=== PATIENT | male | born 1980 | race Caucasian/White ===

== ENCOUNTER 2019-02-14 18:11 | Emergency (ER) | payer BC, OTHER ==
[2019-02-14 18:21] VITALS: BP 155/95
--- NOTE | 2019-02-14 18:27 | NUR ---
C COLLAR APPLIED IN TRIAGE, PT WHEELED BACK TO ROOM 6 IN WC. CSPINE PRECAUTIONS INITIATED IN ROOM 6.
--- NOTE | 2019-02-14 19:15 | NUR ---
report received from MAHSA Stubbs.
--- NOTE | 2019-02-14 19:35 | NUR ---
report to break MAHSA Ware.
[2019-02-14] MEDS ORDERED: OXYcodone/APAP 5/325MG TABLET ONE (19:39)
--- NOTE | 2019-02-14 19:44 | NUR ---
BREAK RN: Pt back to room from imaging, pt medicated per MAR.
[2019-02-14] MEDS ORDERED: OXYcodone/APAP 5/325MG TABLET PO ONE (20:00)
--- NOTE | 2019-02-14 20:07 | NUR ---
report received from CARLOTA Mcdonough at bedside to explain results and POC to pt at this time.
--- NOTE | 2019-02-14 20:56 | NUR ---
c collar was previously removed by provider. pt given dc instructions and script, educated regarding rx for robaxan. pt a&ox4, resps even and unlabored. pt amb to dc desk with steady gait, accompanied by . belem at dc.
== END 2019-02-14 20:55 | disposition home or self-care (01) ==
LOC: ED 20:52
DX: G89.11 Acute pain due to trauma (principal); M54.2 Cervicalgia; M54.9 Dorsalgia, unspecified; R51 Headache; R07.9 Chest pain, unspecified; I10 Essential (primary) hypertension; F17.200 Nicotine dependence, unspecified, uncomplicated; V19.9XXA Pedal cyclist (driver) (passenger) injured in unspecified traffic accident, initial encounter; Y93.89 Activity, other specified; Y92.89 Other specified places as the place of occurrence of the external cause; Y99.8 Other external cause status
CPT/HCPCS: 70450; 71046; 72072; 72125; 99284